=== PATIENT | male | born 1980 | race Caucasian/White ===

== ENCOUNTER 2025-03-14 14:43 | Outpatient (CLI) | payer MEDICAID ==
--- NOTE | 2025-03-14 20:23 | RADIOLOGY REPORT ---
EXAM: MR MRI LOWER EXTREMITY LEFT HISTORY: COMPLEX TEAR OF MEDIAL MENSC, CURRENT INJURY, L KNEE, INIT COMPARISON: None TECHNIQUE: Multiplanar, multisequence imaging of the left knee was performed without contrast FINDINGS: MEDIAL COMPARTMENT: Intact medial meniscus. No focal chondrosis or subchondral edema. LATERAL COMPARTMENT: Intact lateral meniscus. No focal chondrosis or subchondral edema. PATELLOFEMORAL COMPARTMENT: No focal chondrosis or subchondral edema. CRUCIATE LIGAMENTS: Intact anterior and posterior cruciate ligaments. MEDIAL SUPPORTING STRUCTURES: Intact medial collateral ligament. LATERAL SUPPORTING STRUCTURES: Intact iliotibial band, lateral capsular ligament, fibular collateral ligament, popliteus, and biceps femoris tendons EXTENSOR MECHANISM: Intact JOINT SPACE/FLUID: No joint effusion. BONES: No acute fracture, osseous contusion, or aggressive focal osseous lesion . Question small of susceptibility of the distal femoral diaphysis likely related to prior hardware placement. MUSCLES: Normal in signal intensity and morphology NEUROVASCULAR: Unremarkable OTHER: None IMPRESSION: 1. No MR evidence of significant internal derangement.
== END 2025-03-14 23:59 | disposition home or self-care (01) ==
LOC: MRI02 14:43
PROVIDERS: ATTEND Family Medicine Sports Medicine
DX: S83.232A Complex tear of medial meniscus, current injury, left knee, initial encounter (principal); M25.562 Pain in left knee; X58.XXXA Exposure to other specified factors, initial encounter; Y93.89 Activity, other specified; Y92.89 Other specified places as the place of occurrence of the external cause; Y99.8 Other external cause status
CPT/HCPCS: 73721